=== PATIENT | female | born 1990 | race African-American/Black ===

== ENCOUNTER 2016-10-10 02:18 | Emergency (ER) | payer MEDICAID, SELFPAY ==
[~2016-10-10] VITALS: Ht 160 cm; Wt 59.2 kg
[2016-10-10 02:19] VITALS: BP 124/86
[2016-10-10] MEDS ORDERED: DEXAMETHASONE 4 MG/ML, 5ML ONE (02:43)
[2016-10-10] MEDS ORDERED: ONDANSETRON ODT 4 MG ONE (02:53)
[2016-10-10] MEDS ORDERED: DEXAMETHASONE 4 MG TABLET ONE (02:53)
[2016-10-10] MEDS ORDERED: DEXAMETHASONE 4 MG/ML, 1ML IM ONE (03:00)
[2016-10-10] MEDS ORDERED: DEXAMETHASONE 4 MG TABLET PO ONE (03:00)
[2016-10-10] MEDS ORDERED: ONDANSETRON ODT 4 MG PO ONE (03:00)
== END 2016-10-10 03:21 | disposition home or self-care (01) ==
LOC: ED 03:15
DX: J02.8 Acute pharyngitis due to other specified organisms (principal); B97.89 Other viral agents as the cause of diseases classified elsewhere; Z98.51 Tubal ligation status
CPT/HCPCS: 99283; Q0162